=== PATIENT | female | born 1990 | race Caucasian/White ===

== ENCOUNTER 2019-07-04 17:28 | Emergency (ER) | payer SELFPAY ==
--- NOTE | 2019-07-04 17:32 | ED.PDOC ---
History of Present Illness - General Chief Complaint: Fever Time Seen by Provider: 07/04/19 17:32 Source: patient, family - History of Present Illness Initial Comments: 28-year-old female presents with body aches, fever, nonproductive cough with sick child with similar symptoms. Symptom onset this morning, no medication taken, did not get influenza immunization this year. Allergies/Adverse Reactions: Allergies Cephalexin [From Keflex] Allergy (Verified 07/04/19 18:08) Home Medications: Ambulatory Orders Benzonatate Perles [Tessalon Perles] 100 mg PO TID PRN #15 cap 07/04/19 Ondansetron Odt [Zofran ODT] 4 mg PO Q8H PRN #10 tab 07/04/19 Oseltamivir Capsule [Tamiflu] 75 mg PO BID 5 Days #10 capsule 07/04/19 Review of Systems - Review of Systems Review of Systems: 07/04/19 17:37 General: Denies generalized weakness, does have fever, arthralgia/myalgia HEENT: Denies sore throat, rhinorrhea Cardiovascular: Denies chest pain, palpitations Respiratory: Denies SOB, has cough Gastrointestinal: Denies abdominal pain, vomiting, diarrhea : Denies dysuria, frequency Musculoskeletal: Denies extremity pain, extremity swelling Integument: Denies rash, itching Neuro: Denies focal weakness or numbness Psych: Denies depression, hallucinations. Past Medical History (General) - Patient Medical History Hx Seizures: No Hx Stroke: No Hx Dementia: No Hx Asthma: Yes Hx of COPD: No Hx Cardiac Disorders: No Hx Congestive Heart Failure: No Hx Pacemaker: No Hx Hypertension: No Hx Thyroid Disease: No Hx Diabetes: No Hx Gastroesophageal Reflux: No Hx Renal Disease: No Hx Cancer: No Hx of HIV: No Hx Hepatitis C: No Hx MRSA: No - Vaccination History Hx Tetanus, Diphtheria Vaccination: Yes - 3yrs ago Hx Influenza Vaccination: No Hx Pneumococcal Vaccination: No - Social History Hx Tobacco Use: Yes Hx Chewing Tobacco Use: No Hx Alcohol Use: Yes - occ Hx Substance Use: No Hx Substance Use Treatment: No Hx Depression: Yes Hx Physical Abuse: No Hx Emotional Abuse: No Hx Suspected Abuse: No - Female History Hx Last Menstrual Period: 11/23/15 Patient : No Family Medical History - Family History Mother Family History: Unknown Living Status: Physical Exam - Physical Exam Comments: General Appearance: Patient is awake and alert. Skin: Warm and dry. No diaphoresis. No rash or other lesions. Head: Normocephalic/atraumatic. Eyes: PERRL, lids, conjunctiva and sclera unremarkable. EOMI intact. ENT: No nasal discharge. Oropharynx. Without erythema, exudate, lesions. Moist mucous membranes. Neck: Supple. No LAD. No tenderness. No JVD noted. Respiratory: Normal rate and effort. Breath sounds clear bilaterally. Cardiovascular: Regular rate. Heart sounds normal. No murmur. GI: Abdomen soft, non-distended and non-tender. No rebound/guarding. Bowel sounds normal. Back: No tenderness Musculoskeletal: Extremities- Normal range of motion. No effusion, cyanosis, edema. Neurological: Alert. No facial palsy. Speech clear. Gag intact. No motor deficit, str symmetric. No sensory deficit. Progress - Progress Progress: 07/04/19 17:53 VS, exam remain reassuring. I have discussed findings, diff dx, plan of care, need for follow-up, and reasons to return to the ED. Safety Stop (Diagnostic Time-Out): Tachycardia: No Diagnostic Studies: Reviewed Diagnostic Certainty: moderate Patient/family feels safe with discharge: Yes Departure - Departure Clinical Impression: Influenza-like illness Time of Disposition: 18:00 Disposition: Discharge to Home or Self Care Condition: Good Departure Forms: ED Discharge - Pt. Copy, Patient Portal Self Enrollment Instructions: Flu Prescriptions: Benzonatate Perles [Tessalon Perles] 100 mg PO TID PRN #15 cap PRN Reason: Cough Ondansetron Odt [Zofran ODT] 4 mg PO Q8H PRN #10 tab PRN Reason: Nausea Oseltamivir Capsule [Tamiflu] 75 mg PO BID 5 Days #10 capsule Home Medications: Ambulatory Orders Benzonatate Perles [Tessalon Perles] 100 mg PO TID PRN #15 cap 07/04/19 Ondansetron Odt [Zofran ODT] 4 mg PO Q8H PRN #10 tab 07/04/19 Oseltamivir Capsule [Tamiflu] 75 mg PO BID 5 Days #10 capsule 07/04/19 Comments: Alejandro South MD Emergency Medicine #[id number]
[2019-07-04] MEDS ORDERED: IBUPROFEN 200 MG TAB PO ONE (17:51)
[2019-07-04 18:08] VITALS: BP 122/77; TEMP 97.3; O2SAT 99
== END 2019-07-04 18:18 | disposition home or self-care (01) ==
LOC: ER 17:28
DX: J11.1 Influenza due to unidentified influenza virus with other respiratory manifestations (principal); F32.9 Major depressive disorder, single episode, unspecified; J45.909 Unspecified asthma, uncomplicated; Z88.1 Allergy status to other antibiotic agents; Z87.891 Personal history of nicotine dependence